=== PATIENT | male | born 1965 | race Hispanic/Latino ===

== ENCOUNTER → 2024-07-01 | Outpatient (REF) | payer OTHER ==
[~2024-07-01] MED LIST: CRESTOR40 MG PO; LOSARTAN POTASS25 MG PO; METFORMIN HCL500 MG PO; MOUNJARO5 MG/0.5 M PO
== END | disposition home or self-care (01) ==
LOC: LAB 05:00 → OR 07-07 08:04 → EDSTATUS 07-07 12:30
PROVIDERS: ATTEND Internal Medicine Gastroenterology
DX: R12 Heartburn (principal); R13.10 Dysphagia, unspecified; R11.2 Nausea with vomiting, unspecified; Z71.3 Dietary counseling and surveillance; I10 Essential (primary) hypertension; Z68.34 Body mass index [BMI] 34.0-34.9, adult; Z87.891 Personal history of nicotine dependence; Z53.9 Procedure and treatment not carried out, unspecified reason
CPT/HCPCS: 93005